=== PATIENT | male | born 1945 | race Caucasian/White ===

== ENCOUNTER 2019-02-16 09:02 | Day surgery (SDC) | payer OTHER ==
[~2019-02-16] VITALS: Ht 193 cm; Wt 113.5 kg
[~2019-02-16 09:02] MED LIST: ASCO500 PO; FAMO20 PO; GABA600 PO; Metoprolol Succ25 MG PO; PRED10 PO; Vitamin D2000 UNIT PO
--- NOTE | 2019-02-16 14:09 | NUR ---
02/16/19 Xiomara Mane ENTRY SWITCHED TO UPPER SCOPE #[id number] UNABLE TO REACH CECUM WITH COLONOSCOPE. RN ADMINISTERED TOTAL OF 680MG PROPOFOL DURING CASE WHERE PT WAS STABLE THROUGHOUT PROCEDURE.
== END 2019-02-16 12:09 | disposition home or self-care (01) ==
LOC: ORSCSDS 09:02
PROVIDERS: Internal Medicine Gastroenterology
PROC: 0DBN8ZX Excision of Sigmoid Colon, Via Natural or Artificial Opening Endoscopic, Diagnostic (ICD-10-PCS; principal; 2019-02-16 10:15)
DX: Z12.11 Encounter for screening for malignant neoplasm of colon (principal); K63.5 Polyp of colon; K57.30 Diverticulosis of large intestine without perforation or abscess without bleeding; K64.8 Other hemorrhoids; F17.210 Nicotine dependence, cigarettes, uncomplicated; I10 Essential (primary) hypertension; Z79.899 Other long term (current) drug therapy
CPT/HCPCS: 88305; J7120

== ENCOUNTER → 2019-10-17 | Outpatient (CLI) | payer OTHER | END | disposition home or self-care (01) | LOC: LAB SHORT 18:01 → LAB 18:01 | DX: R30.0 Dysuria (principal) | CPT/HCPCS: 88108 ==

== ENCOUNTER → 2020-06-20 | Outpatient (CLI) | payer OTHER ==
[2020-06-20 09:29] LABS: Source, Urine Clean Catch
[2020-06-20 11:55] LABS: Appearance, Urine Hazy (Clear); Bilirubin, Urine Neg (Neg); Blood, Urine 3+ (Neg); Color, Urine Yellow (P-Yellow); Glucose Qualitative, Urine Neg (Neg); Ketones, Urine Neg (Neg); Leukocyte Esterase, Urine 3+ (Neg); Nitrite, Urine Neg (Neg); Protein, Urine 1+ (Neg); Specific Gravity, Urine 1.015 (1.003-1.022); Urobilinogen, Urine NORM (Normal)
[2020-06-20 12:14] LABS: White Blood Cells, Urine TNTC /hpf (0-5)
[2020-06-20 12:18] LABS: Amorphous Light (0-Heavy); Bacteria Many /hpf; Hyaline Casts 0-2 /lpf (0-2); Squamous Epithelial Cells Rare /hpf (Few)
== END | disposition home or self-care (01) ==
LOC: LAB 09:27 → LAB SHORT 09:27 → LAB FUT 05-25 14:45
PROVIDERS: Urology
DX: C67.4 Malignant neoplasm of posterior wall of bladder (principal)
CPT/HCPCS: 81001

== ENCOUNTER → 2020-09-05 | Outpatient (CLI) | payer OTHER ==
[2020-09-05 15:01] LABS: Bilirubin, Urine Neg (Neg); Blood, Urine 1+ (Neg); Glucose Qualitative, Urine Neg (Neg); Ketones, Urine Neg (Neg); Leukocyte Esterase, Urine 2+ (Neg); Nitrite, Urine Neg (Neg); Protein, Urine Neg (Neg); Urobilinogen, Urine NORM (Normal)
[2020-09-05 15:19] LABS: Appearance, Urine Clear (Clear); Color, Urine Yellow (P-Yellow)
[2020-09-05 15:20] LABS: White Blood Cells, Urine 25-50 /hpf (0-5)
[2020-09-05 15:21] LABS: Bacteria Few /hpf; Squamous Epithelial Cells Not Seen /hpf (Few)
== END | disposition home or self-care (01) ==
LOC: LAB 14:32 → LAB SHORT 14:32
PROVIDERS: Radiology Radiation Oncology
DX: R30.0 Dysuria (principal)
CPT/HCPCS: 81001; 87086

== ENCOUNTER 2021-01-17 10:52 | Emergency (ER) | payer OTHER ==
[~2021-01-17] VITALS: Ht 193 cm; Wt 104.3 kg
[~2021-01-17 10:52] MED LIST changes: -Metoprolol Succ25 MG PO
[2021-01-17 11:58] LABS: BASOPHILS ABSOLUTE AUTO 0.02 K/mm3 (0.00-0.23); BASOPHILS PERCENT AUTO 0 % (0-2); EOSINOPHILS PERCENT AUTO 0 % (0-6); Hematocrit 39.7 % (37.0-53.0); Hemoglobin 13.6 g/dL (13.5-17.5); IMMATURE GRAN ABSOLUTE AUTO 0.03 K/mm3 (0.00-0.10); IMMATURE GRAN PERCENT AUTO 1 % (0-1); LYMPHOCYTES ABSOLUTE AUTO 0.59 K/mm3 (0.84-5.20); LYMPHOCYTES PERCENT AUTO 10 % (21-46); MONOCYTES ABSOLUTE AUTO 0.35 K/mm3 (0.16-1.47); MONOCYTES PERCENT AUTO 6 % (4-13); Mean Corpuscular HGB 32.8 pg (26.0-34.0); Mean Corpuscular HGB Conc 34.3 g/dL (31.5-36.5); Mean Corpuscular Volume 96 fL (80-100); Mean Platelet Volume 9.3 fL (9.1-12.4); NEUTROPHILS ABSOLUTE AUTO 5.05 K/mm3 (1.96-9.15); NEUTROPHILS PERCENT AUTO 84 % (41-73); Platelet Count 211 K/mm3 (150-400); RDW Coefficient Variation 12.6 % (11.7-14.2); RDW Standard Deviation 43.9 fL (35.1-46.3); Red Blood Cell Count 4.15 M/mm3 (4.30-5.90); White Blood Cell Count 6.04 K/mm3 (4.00-11.30)
[2021-01-17 12:15] LABS: Alanine Aminotransfer (ALT/SGP 20 U/L (12-78); Albumin, Blood 3.7 g/dL (3.4-5.0); Albumin/Globulin Ratio 1.1 (0.8-1.8); Alk Phos 54 U/L (50-136); Anion Gap 7 mmol/L (6-16); Aspartate Aminotrans (AST/SGOT 6 U/L (12-37); Bilirubin, Total 0.7 mg/dL (0.1-1.0); Blood Urea Nitrogen 21 mg/dL (8-24); Bun/Creatinine Ratio 23.9 (12.0-20.0); CO2, Blood 26 mmol/L (21-32); Chloride, Blood 102 mmol/L (98-108); Creatinine, Blood 0.88 mg/dL (0.60-1.20); Globulin, Blood 3.5 g/dL (2.2-4.0); Glomerular Filtration Rate >60 (60-); Glucose, Blood 122 mg/dL (70-99); Potassium, Blood 4.1 mmol/L (3.5-5.5); Sodium, Blood 135 mmol/L (136-145); Total Protein, Blood 7.2 g/dL (6.4-8.2)
[2021-01-17] MEDS ORDERED: MECL25 PO (13:15)
== END 2021-01-17 13:57 | disposition home or self-care (01) ==
LOC: ER 10:52
PROVIDERS: Physician Assistant
DX: R42 Dizziness and giddiness (principal); I10 Essential (primary) hypertension; Z87.891 Personal history of nicotine dependence; Z79.899 Other long term (current) drug therapy
CPT/HCPCS: 36415; 70450; 80053; 85025; 93005; 93010; 93246; 99284-25

== ENCOUNTER 2021-02-04 09:38 | Emergency (ER) | payer OTHER ==
[~2021-02-04] VITALS: Ht 193 cm; Wt 99.8 kg
[~2021-02-04 09:38] MED LIST changes: +MECL25 PO
[2021-02-04 10:47] LABS: BASOPHILS ABSOLUTE AUTO 0.04 K/mm3 (0.00-0.23); BASOPHILS PERCENT AUTO 1 % (0-2); EOSINOPHILS ABSOLUTE AUTO 0.02 K/mm3 (0.00-0.68); EOSINOPHILS PERCENT AUTO 0 % (0-6); Hematocrit 37.6 % (37.0-53.0); Hemoglobin 13.1 g/dL (13.5-17.5); IMMATURE GRAN ABSOLUTE AUTO 0.03 K/mm3 (0.00-0.10); IMMATURE GRAN PERCENT AUTO 1 % (0-1); LYMPHOCYTES ABSOLUTE AUTO 1.03 K/mm3 (0.84-5.20); LYMPHOCYTES PERCENT AUTO 17 % (21-46); MONOCYTES ABSOLUTE AUTO 0.69 K/mm3 (0.16-1.47); MONOCYTES PERCENT AUTO 11 % (4-13); Mean Corpuscular HGB 32.8 pg (26.0-34.0); Mean Corpuscular HGB Conc 34.8 g/dL (31.5-36.5); Mean Corpuscular Volume 94 fL (80-100); Mean Platelet Volume 9.1 fL (9.1-12.4); NEUTROPHILS ABSOLUTE AUTO 4.32 K/mm3 (1.96-9.15); NEUTROPHILS PERCENT AUTO 70 % (41-73); Platelet Count 202 K/mm3 (150-400); RDW Standard Deviation 41.7 fL (35.1-46.3); Red Blood Cell Count 3.99 M/mm3 (4.30-5.90); White Blood Cell Count 6.13 K/mm3 (4.00-11.30)
[2021-02-04 11:05] LABS: Source, Urine Clean Catch
[2021-02-04 11:09] LABS: Alanine Aminotransfer (ALT/SGP 16 U/L (12-78); Albumin, Blood 3.3 g/dL (3.4-5.0); Alk Phos 42 U/L (50-136); Anion Gap 10 mmol/L (6-16); Aspartate Aminotrans (AST/SGOT 9 U/L (12-37); Bilirubin, Total 0.7 mg/dL (0.1-1.0); Blood Urea Nitrogen 18 mg/dL (8-24); CO2, Blood 23 mmol/L (21-32); Calcium, Blood 8.6 mg/dL (8.5-10.1); Chloride, Blood 100 mmol/L (98-108); Globulin, Blood 3.2 g/dL (2.2-4.0); Glomerular Filtration Rate >60 (60-); Glucose, Blood 115 mg/dL (70-99); Potassium, Blood 3.9 mmol/L (3.5-5.5); Sodium, Blood 133 mmol/L (136-145); Total Protein, Blood 6.5 g/dL (6.4-8.2); Troponin I <0.015 ng/mL (0.000-0.040)
[2021-02-04 11:18] LABS: Bilirubin, Urine Neg (Neg); Blood, Urine 3+ (Neg); Glucose Qualitative, Urine Neg (Neg); Ketones, Urine Neg (Neg); Leukocyte Esterase, Urine 1+ (Neg); Nitrite, Urine Neg (Neg); Protein, Urine 1+ (Neg); Urobilinogen, Urine 1+ (Normal)
[2021-02-04 11:47] LABS: Appearance, Urine Clear (Clear); Color, Urine Yellow (P-Yellow)
[2021-02-04 11:52] LABS: Bacteria Few /hpf; Mucus Mod (0-Heavy); Squamous Epithelial Cells Rare /hpf (Few)
== END 2021-02-04 12:37 | disposition home or self-care (01) ==
LOC: ER 09:38
PROVIDERS: Physician Assistant
DX: E86.0 Dehydration (principal); R42 Dizziness and giddiness; I10 Essential (primary) hypertension; Z79.899 Other long term (current) drug therapy; Z87.891 Personal history of nicotine dependence
CPT/HCPCS: 36415; 80053; 81001; 84484; 85025; 87086; 93005; 93010; 99284-25; J7030

== ENCOUNTER 2021-03-05 14:56 | Observation (INO) | payer OTHER ==
[~2021-03-05] VITALS: Ht 182.9 cm; Wt 89.3 kg
[2021-03-05 15:42] LABS: BASOPHILS ABSOLUTE AUTO 0.02 K/mm3 (0.00-0.23); BASOPHILS PERCENT AUTO 0 % (0-2); EOSINOPHILS ABSOLUTE AUTO 0.02 K/mm3 (0.00-0.68); EOSINOPHILS PERCENT AUTO 0 % (0-6); Hematocrit 38.2 % (37.0-53.0); Hemoglobin 13.7 g/dL (13.5-17.5); IMMATURE GRAN ABSOLUTE AUTO 0.12 K/mm3 (0.00-0.10); IMMATURE GRAN PERCENT AUTO 1 % (0-1); LYMPHOCYTES PERCENT AUTO 6 % (21-46); MONOCYTES ABSOLUTE AUTO 0.61 K/mm3 (0.16-1.47); MONOCYTES PERCENT AUTO 7 % (4-13); Mean Corpuscular HGB 32.7 pg (26.0-34.0); Mean Corpuscular HGB Conc 35.9 g/dL (31.5-36.5); Mean Corpuscular Volume 91 fL (80-100); Mean Platelet Volume 9.2 fL (9.1-12.4); NEUTROPHILS ABSOLUTE AUTO 8.04 K/mm3 (1.96-9.15); NEUTROPHILS PERCENT AUTO 85 % (41-73); Platelet Count 169 K/mm3 (150-400); RDW Coefficient Variation 12.1 % (11.7-14.2); Red Blood Cell Count 4.19 M/mm3 (4.30-5.90); White Blood Cell Count 9.41 K/mm3 (4.00-11.30)
[2021-03-05 16:02] LABS: Alanine Aminotransfer (ALT/SGP 38 U/L (12-78); Albumin, Blood 2.8 g/dL (3.4-5.0); Albumin/Globulin Ratio 0.8 (0.8-1.8); Alk Phos 49 U/L (50-136); Anion Gap 7 mmol/L (6-16); Aspartate Aminotrans (AST/SGOT 23 U/L (12-37); Bilirubin, Total 0.9 mg/dL (0.1-1.0); Blood Urea Nitrogen 19 mg/dL (8-24); Bun/Creatinine Ratio 23.5 (12.0-20.0); CO2, Blood 27 mmol/L (21-32); Calcium, Blood 8.6 mg/dL (8.5-10.1); Chloride, Blood 97 mmol/L (98-108); Creatinine, Blood 0.81 mg/dL (0.60-1.20); Globulin, Blood 3.4 g/dL (2.2-4.0); Glomerular Filtration Rate >60 (60-); Glucose, Blood 117 mg/dL (70-99); Potassium, Blood 3.9 mmol/L (3.5-5.5); Sodium, Blood 131 mmol/L (136-145); Total Protein, Blood 6.2 g/dL (6.4-8.2)
[2021-03-05] MEDS ORDERED: OMEP20ER PO (18:38)
[2021-03-05] MEDS ORDERED: TRAM50 PO (18:39)
[2021-03-05] MEDS ORDERED: Metoprolol Succ25 MG PO (20:18)
--- NOTE | 2021-03-05 21:18 | NUR ---
ADMIT PT ARRIVED TO RM 349 VIA STRETCHER @5594. 3 PER SLIDE TRANSFER TO NEW BED. ORIENTED PT TO CALL LIGHT. PT HAD SOILED ATTENDS CHANGED & CLEANED SKIN. WILL MONITOR.
[2021-03-05] MEDS ORDERED: IBUP800 PO (23:05)
[2021-03-05] MEDS ORDERED: SULFAMETHOXAZO1 EAC1 PO (23:06)
--- NOTE | 2021-03-06 04:40 | NUR ---
SHIFT SUMMARY ADMITTED FOR ENCEPHALOPATHY & INCREASED WEAKNESS. AOX3-SELF, PLACE, FOLLOWING DIRECTIONS, YEAR. VERY [place], DOESN'T HAVE HEARING AIDS IN. FOLLOWS DIRECTIONS. PT AWARE HE'S BEEN CONFUSED, STATES "IT SEEMS SILLY I WOULDN'T KNOW THE DATE." POOR HISTORIAN, UNABLE TO GIVE HEALTH HX OR CURRENT MED LIST. 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 DENIES PAIN, N/V OR DYSPNEA. STATES HE FEELS REALLY TIRED & HASN'T HAD AN APPETITE. STATES "FOOD DOESN'T SOUND GOOD." NPO FOR SPEECH EVAL TODAY. PLAN TO HAVE MRI AFTER STAFF CAN FILL OUT MRI FORM c FAMILY THIS AM. INCONT OF URINE. PT STATES HE WANTS TO GO HOME. CALL LIGHT & BED ALARM IN PLACE. WILL MONITOR UNTIL DAY NURSE ASSUMES CARE.
[2021-03-06 04:51] LABS: BASOPHILS ABSOLUTE AUTO 0.03 K/mm3 (0.00-0.23); BASOPHILS PERCENT AUTO 0 % (0-2); EOSINOPHILS ABSOLUTE AUTO 0.08 K/mm3 (0.00-0.68); EOSINOPHILS PERCENT AUTO 1 % (0-6); Hemoglobin 13.4 g/dL (13.5-17.5); IMMATURE GRAN ABSOLUTE AUTO 0.05 K/mm3 (0.00-0.10); IMMATURE GRAN PERCENT AUTO 1 % (0-1); LYMPHOCYTES ABSOLUTE AUTO 0.79 K/mm3 (0.84-5.20); LYMPHOCYTES PERCENT AUTO 11 % (21-46); MONOCYTES ABSOLUTE AUTO 0.58 K/mm3 (0.16-1.47); MONOCYTES PERCENT AUTO 8 % (4-13); Mean Corpuscular HGB 32.7 pg (26.0-34.0); Mean Corpuscular HGB Conc 34.4 g/dL (31.5-36.5); Mean Corpuscular Volume 95 fL (80-100); Mean Platelet Volume 9.2 fL (9.1-12.4); NEUTROPHILS ABSOLUTE AUTO 5.45 K/mm3 (1.96-9.15); NEUTROPHILS PERCENT AUTO 78 % (41-73); Platelet Count 154 K/mm3 (150-400); RDW Coefficient Variation 12.2 % (11.7-14.2); RDW Standard Deviation 41.8 fL (35.1-46.3); White Blood Cell Count 6.98 K/mm3 (4.00-11.30)
[2021-03-06 06:02] LABS: Anion Gap 8 mmol/L (6-16); Blood Urea Nitrogen 17 mg/dL (8-24); Bun/Creatinine Ratio 23.8 (12.0-20.0); CO2, Blood 24 mmol/L (21-32); Calcium, Blood 8.7 mg/dL (8.5-10.1); Chloride, Blood 102 mmol/L (98-108); Creatinine, Blood 0.71 mg/dL (0.60-1.20); Glomerular Filtration Rate >60 (60-); Glucose, Blood 89 mg/dL (70-99); Potassium, Blood 3.7 mmol/L (3.5-5.5); Sodium, Blood 134 mmol/L (136-145)
[2021-03-06 09:04] LABS: Phosphorus, Blood 3.6 mg/dL (2.5-4.9)
--- NOTE | 2021-03-06 19:18 | NUR ---
SHIFT SUMMARY: NO ACUTE EVENTS. A&O X 1, PLEASANT, VERY [place]. DENIED PAIN. INCONTINENT OF B&B, ATTENDS IN PLACE. SPEECH, PHYSICAL AND OCC THERAPY SAW PATIENT. MRI NOT DONE BECAUSE PT HAD ONE ON 02/12/21 AT [facility]. VISITED TODAY, UNABLE TO TAKE PATIENT HOME TODAY; NEEDS MORE HELP AT HOME SHE IS CURRENTLY TAKING CARE OF PT ALONE. WAREHOUSE INCENTIVE SELECTOR AND MARTI RILEY LIASON TO CALL HER TOMORROW.
--- NOTE | 2021-03-06 19:20 | NUR ---
ASSUMED CARE RECEIVED REPORT FROM KARMA WERNER. PT RESTING IN BED QUIETLY, IN NO ACUTE DISTRESS. DENIES NEEDS. CALL LIGHT, POSSESSIONS IN REACH, BED IN LOWEST POSITION WITH ALARMS ON.
[2021-03-07 00:37] LABS: Stool Occult Blood Guaiac 1 Neg (Neg)
--- NOTE | 2021-03-07 03:48 | NUR ---
SHEETROCK APPLICATOR SUMMARY PT SLEEPING, IN NO ACUTE DISTRESS. NO ACUTE CHANGES IN CONDITION TO REPORT OVERNIGHT. VS REVIEWED,WNL. GUAIAC STOOL SAMPLE OBTAINED AND SENT. NO ACUTE SIGNS OF DISTRESS NOTED. DENIES PAIN OR DISCOMFORT. CALL LIGHT, POSSESSIONS IN REACH, BED IN LOW POSITION WITH ALARMS ON. WILL CONTINUE TO PROVIDE CARE AND REPORT OFF TO ONCOMING RN.
--- NOTE | 2021-03-07 18:09 | NUR ---
SHIFT SUMMARY: NO ACUTE EVENTS. A&O X 1, RECOGNIZES HIS . C/O LOW BACK PAIN; MEDICATED WITH TYLENOL WITH ADEQUATE RELIEF. INCONTINENT OF B&B, ATTENDS IN PLACE. VERY POOR APPETITE, DOESN'T EAT EVEN WITH ASSISTANCE, DRINKS ENSURE AT LEAST ONCE PER DAY. WORKED WITH SPEECH THERAPY. PLAN IS POSSIBLE D/C TOMORROW.
--- NOTE | 2021-03-07 19:10 | NUR ---
ASSUMED CARE RECEIVED REPORT FROM KARMA WERNER. PT ASLEEP, RESPS E/U. NO ACUTE DISTRESS NOTED. CALL LIGHT AND POSSESSIONS IN REACH, BED IN LOW POSITION WITH ALARMS ON.
--- NOTE | 2021-03-08 03:22 | NUR ---
BOBBIN DUMPER SUMMARY PT ASLEEP, IN NO ACUTE DISTRESS, RESPS EVEN AND UNLABORED. VS REVIEWED, HYPERTENSIVE, OTHER VS WNL. NO SIGNS OF PAIN NOTED. HAS BEEN ASLEEP THROUGHOUT MOST OF THE NIGHT. NO ACUTE CHANGES IN CONDITION TO REPORT OVERNIGHT. NO ACUTE NEEDS ASSESSED AT THIS TIME. CALL LIGHT, POSSESSIONS IN REACH, BED IN LOW POSITION WITH ALARMS ON. WILL CONTINUE TO PROVIDE CARE UNTIL REPORT GIVEN TO ONCOMING RN.
[2021-03-08] MEDS ORDERED: ACET325 PO (15:25)
--- NOTE | 2021-03-08 15:57 | NUR ---
Met with pt today; he was unable to tell me why he is here, but he did smile. He doesn't appear to be SOB or in any pain. Attempted to speak with family regarding code status, but pt has no been approved to go home today on hospice, with his , Kelechi and his son Eliazar. No further needs identified.
--- NOTE | 2021-03-08 18:15 | NUR ---
DISCHARGE NOTE PT A&O TO SELFT. PT PLESANT AND CONFUSED. PT [place], WOULD TRY TO ANSWER QUESTIONS BUT ANSWERS WERE OFF TOPIC. PT DC HOME WITH HOSPICE. PT PICKED UP BY [facility] AND TRANSPORTED BY [facility]. 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 NO PERSONAL BELONGINGS WERE IN ROOM.
== END 2021-03-08 17:38 | disposition hospice, home (50) ==
LOC: ER 14:56 → ERHOLD 14:57 → MEDS 14:57 → ENPENDDIS 03-08 15:09 → MEDS 03-08 17:38
PROVIDERS: Internal Medicine; Nurse Practitioner Acute Care; Student in an Organized Health Care Education/Training Program; ADMIT Internal Medicine
DX: F01.50 Vascular dementia, unspecified severity, without behavioral disturbance, psychotic disturbance, mood disturbance, and anxiety (principal); G93.40 Encephalopathy, unspecified; E44.0 Moderate protein-calorie malnutrition; I10 Essential (primary) hypertension; K21.9 Gastro-esophageal reflux disease without esophagitis; R63.4 Abnormal weight loss; Z87.891 Personal history of nicotine dependence; Z74.09 Other reduced mobility
CPT/HCPCS: 36415; 80048; 80053; 82270; 82607; 82746; 83735; 84100; 84443; 85025; 92507; 92523; 92526; 92610; 93005; 93010; 96365; 96372; 97110; 97162; 97165; 97530; 99285-25; A9270; C9113; G0378; J1650; J3480; J7030